=== PATIENT | female | born 2005 | race Two or more races ===

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

== ENCOUNTER 2023-02-21 11:00 | Outpatient (RCR) | payer OTHER, SELFPAY ==
--- NOTE | 2022-12-29 14:53 | OPREHPOC ---
Outpatient Therapy Plan of Care This is a Multidisciplinary Plan of Care that may contain components documented by all disciplines (PT, OT, and ST.) PT Problem 1 PT Problem #1 Knowledge Deficit PT Goal 1 Goal Independent with progressive hip and core strengthening program. Target Visit 4 PT Problem 2 PT Problem #2 Pain PT Goal 1 Goal Patient will report no increased knee pain when walking more than 5 minutes Target Visit 8 PT Problem 3 PT Problem #3 Impaired Strength PT Goal 1 Goal Improve codi hip abduction strength to 4+/5 to improve lateral stability with gait Target Visit 8 PT Goal 2 Goal Improve lower abdominal strength to 4/5 to improve pelvic control with functional activity and knee stability PT Problem 4 PT Problem #4 Impaired Functional Mobil PT Goal 1 Goal Patient will demonstrate proper squat lift form of 20# to help with lifting of daughter without pain
--- NOTE | 2022-12-29 14:54 | PTOPEVAL1 ---
Assessment and note entered by Tad Stephenson, PT Evaluation Information Assessment Status Evaluation Diagnosis Bilateral knee pain, Leg weakness, Altered gait Onset 2016 Subjective Information Reports that left knee is worse than right and hurts most all of the time. She has had some clicking and pain in the knee. She is right handed . Hurts when she is very active or when she has been sitting for a long time and initiates movement. Her back is bothering her as well. Reported Pain Level Pain Score 1: Self Report Assessment PT Clinical Summary Patient presents with objective deficits in lateral hip strength, minor hip mobility, and core weakness. She is demonstrating signs and symptoms consistent with patellofemoral syndrome and will benefit from skilled therapy to address these deficits. Plan of Care Interventions Electrical Stimulation,Gait Training,Manual Therapy,Neuro Re-education,Therapeutic Activities, Therapeutic Exercise PT Services Indicated Yes Treatment Frequency and 1-2x/week for 4 weeks Duration These treatments will address the objective and functional deficits as defined above. The patient will be advanced safely and appropriately in order for the patient to progress towards his/her prior level of function. Additional exercises will be introduced and as well as a comprehensive home exercise program upon discharge, if needed, ?to ensure carryover of functional gains achieved in the clinic. This treatment plan has been reviewed and agreement upon by the patient.
--- NOTE | 2023-01-27 13:23 | PCPTNOTE ---
The patient treatment was not able to be completed on 01/25/23 due to staffing shortage. Will plan to continue treatment per plan of care.
--- NOTE | 2023-01-30 16:40 | PTOPPROG ---
Assessment and note entered by Sigrid Motley, PT Assessment Status Progress Diagnosis Bilateral knee pain, Leg weakness, Altered gait Onset 2017 Subjective Information Self percieved improvement - 25-30% Pain is not as often and is less intense Still has clicking sometimes with pain and sometimes without Assessment PT Clinical Summary Pt has attended therapy consistently for bilat knee pain. she demo's improvement in strength and range, is progressing into closed chain exercises, and reports decreased pain overall. Has yet to meet all her goals. Thus would benefit from continued therapy to continue progression and resolve pain Plan of Care Interventions Electrical Stimulation,Gait Training,Manual Therapy,Neuro Re-education,Therapeutic Activities, Therapeutic Exercise PT Services Indicated Yes Treatment Frequency and continue 1-2x weekly x 4 weeks Duration These treatments will address the objective and functional deficits as defined above. The patient will be advanced safely and appropriately in order for the patient to progress towards his/her prior level of function. Additional exercises will be introduced and as well as a comprehensive home exercise program upon discharge, if needed, ?to ensure carryover of functional gains achieved in the clinic. This treatment plan has been reviewed and agreement upon by the patient.
--- NOTE | 2023-02-14 15:42 | PCPTNOTE ---
Patient did not show up for scheduled appointment this date.
--- NOTE | 2023-02-21 11:27 | PTOPDC ---
Assessment and note entered by Sigrid Motley, PT Assessment Status Discharge Diagnosis Bilateral knee pain, Leg weakness, Altered gait Onset 2016 Subjective Information Pt reports she is still the same as last evaluation. Perceived improvement from beginning 25-30% 7/10 doesn't remember what happened, right knee just started hurting really bad Still painful squatting to lift daughter Is now able to walk 5 minutes without increased pain Reported Pain Level Pain Score 3: Self Report Assessment PT Clinical Summary Pt reports feeling 25-30% improved overall which is unchanged since last progress report. However patient was not able to attend consistently between last progress note testing and this session as she had between evaluation and first progress note. She demo's no change in her gluteus medius and tanvir strength, core goal has been met, walking goal has been met, and original lift goal has been met. Pt cont to complain of pain ranging from 1-7/10 overall however. States also she will bot be able to continue attending therapy or return to ortho at this time due to lack of insurance coverage. Pt HEP was updated, pt was encouraged in appropriate arch supports, and when has insurance coverage to consider returning to therapy for her back pain and to her knee doctor as well. Thus patient is being discharged due to pt request.
== END 2023-02-28 08:50 | disposition home or self-care (01) ==
LOC: ANHHIPT 11:00
PROVIDERS: PCP Family Medicine; Visit Provider Nurse Practitioner
DX: M25.561 Pain in right knee (principal); M25.562 Pain in left knee
CPT/HCPCS: 97014; 97110; 97112; 97161; 97750; G0283